=== PATIENT | female | born 1970 | race Two or more races ===

== ENCOUNTER 2021-07-28 09:46 | Emergency (ER) | payer SELFPAY ==
[~2021-07-28] VITALS: Ht 152.4 cm; Wt 53.5 kg
[2021-07-28] MEDS ORDERED: IBUPROFEN 600 MG TAB PO ONE (10:00)
[2021-07-28] MEDS ORDERED: LIDOCAINE 1% HCL (LOCAL ANESTH.) INJ 20ML MDV ONE (10:06)
[2021-07-28] MEDS ORDERED: IBUP800T27 PO (10:37)
[2021-07-28] MEDS ORDERED: CLIN300C8 PO (10:37)
[2021-07-28 10:46] VITALS: BP 168/92
== END 2021-07-28 11:14 | disposition home or self-care (01) ==
LOC: ER 09:46
DX: L03.312 Cellulitis of back [any part except buttock and flank] (principal); J45.909 Unspecified asthma, uncomplicated; Z88.0 Allergy status to penicillin; Z88.2 Allergy status to sulfonamides; Z20.822 Contact with and (suspected) exposure to COVID-19
CPT/HCPCS: 36415; 87426; 99283; J2001